=== PATIENT | male | born 1985 | race Caucasian/White ===

== ENCOUNTER 2021-07-14 22:21 | Emergency (ER) | payer OTHER, MEDICAID, SELFPAY ==
[2021-07-14 22:27] VITALS: BP 126/95; PULSE 104; RESP 18; TEMP 36.9; O2SAT 100; BMI 23.3
--- NOTE | 2021-07-15 01:38 | ED.DENTAL ---
HPI - Dental/Oral General Chief complaint: Dental/Oral Stated complaint: mouth pain and swelling Time Seen by Provider: 07/15/21 01:00 Source: patient Mode of arrival: Ambulatory History of Present Illness HPI Narrative: 36-year-old male vapes, with longstanding dental history presents with a chief complaint of pain and swelling of his right upper gum with some fluctuance. He had recently been seen and evaluated by his dentist and was given antibiotics and has since developed pain and swelling. He has had no facial swelling denies any fever or chills. Related Data Previous Rx's Medication Instructions Recorded amoxicillin 875 mg-potassium 1 tab PO BID #20 tab 07/15/21 clavulanate 125 mg tablet (Augmentin) Allergies Allergy/AdvReac Type Severity Reaction Status Date / Time No Known Drug Allergies Allergy Verified 07/14/21 22:31 Review of Systems Review of Systems Narrative: GENERAL: Denies chills, fatigue, malaise, fever, sweats. HEENT: See HPI RESPIRATORY: Denies dyspnea, cough, wheezing, hemoptysis, sputum. CARDIOVASCULAR: Denies chest pain, palpitations, orthopnea, edema, GASTROINTESTINAL: Denies nausea, vomiting, abdominal pain, diarrhea, constipation, melena. : Denies dysuria, frequency, incontinence, hematuria, urinary retention. MUSCULOSKELETAL: denies weakness, joint pain, or bony pain SKIN: Denies rash, skin lesions, or other NEUROLOGIC: Denies weakness, headache, numbness, change in speech, confusion, seizures, incoordination. PSYCHIATRIC: No concerning psychosocial issues. 12 point review of systems is negative except for those stated above Patient History tobacco type: vaping Substance Use Type: marijuana and methamphetamine Exam Narrative Exam Narrative: GEN: AOx3 and in mild distress EYES: Pupils are equal, round, and reactive to light and accommodation. Extraoccular muscles are intact bilaterally. There is no subconjunctival hemorrhage or exudate. ENT: poor dentition throughout, 2cm fluctuant mass above right upper premolars c/w abscess CHEST: Lungs are clear to auscultation bilaterally and free of wheezes, rales, or rhonchi. Heart rate is regular rhythm, there are no murmurs, clicks, rubs, or gallops. There is no chest wall tenderness. ABD: Abdomen is soft and nontender. There is no guarding or rebound. Bowel sounds are normal in all 4 quadrants. There is no mass or organomegaly. EXT: Full painless ROM of all extremities with no loss of sensation or strength. SKIN: Warm, pink, and dry. No erythema or rash Initial Vital Signs Initial Vital Signs: Vital Signs Temperature 98.5 F 07/14/21 22:27 Pulse Rate 104 H 07/14/21 22:27 Respiratory Rate 18 07/14/21 22:27 Blood Pressure 126/95 H 07/14/21 22:27 Pulse Oximetry 100 07/14/21 22:27 Procedures Abscess I/D I&D #1: Site: oral Side (if applicable): right Local Anesthetic: lidocaine 1% Amount of anesthesia used (mL): 3 Technique: needle aspiration Amount of fluid expressed (mL): 3 Irrigation: No Course Orders Ordered: Discontinued Medications Amoxicillin/Clavulanate Potassium (Amoxicillin/Clav 875/125 Mg) 1 tab PO NOW ONE Stop: 07/15/21 01:36 Last Admin: 07/15/21 02:05 Dose: 1 tab Documented by: DBROYLE Lidocaine HCl (Lidocaine Viscous 2% 15 Ml Solution) 15 ml PO NOW ONE Stop: 07/15/21 01:36 Vital Signs Vital signs: Vital Signs - 8 hr 07/14/21 22:27 07/15/21 02:09 Temperature 98.5 F Pulse Rate 104 H 89 Respiratory Rate 18 18 Blood Pressure 126/95 H 152/105 H Pulse Oximetry 100 96 Discharge Plan Departure Patient Disposition: Home Clinical Impression: Dental abscess Instructions: Tooth Abscess Activity Restrictions/Additional Instructions: *You have been diagnosed with [dental abscess] *What to do: *Please continue to take your regular medications as directed. [ x] New medication prescriptions sent to your pharmacy: [ [facility]] [ ] New medication written as a paper prescription [ ] No new medications given *Please follow up with your primary care provider in 2-3 days, call for an appointment. Let them know you were seen in the Emergency Department and that we ask that you be seen in follow up. We will electronically transmit a record of today's note if your PCP is in our system *If you do not have a primary care provider please contact the [facility] Resource line at [phone]. They will ask some questions about your medical history and help get you set up with a doctor in the community. *Return to Emergency Department if you should have any new, worsening or concerning symptoms, such as [fever greater than 101 F, shaking chills, worsening pain, persistent vomiting or other bothersome symptoms] Prescriptions: New amoxicillin-pot clavulanate [Augmentin] 875-125 mg tablet 1 tab PO BID Qty: 20 0RF
[2021-07-15] MEDS: AMOXICILLIN/CLAV 875/125 MG 1 TAB PO (02:05)
--- NOTE | 2021-07-15 02:07 | PC.NURSE ---
swelling noted to rt upper gum, appears to be an abscess.
[2021-07-15 02:09] VITALS: BP 152/105; PULSE 89; RESP 18; O2SAT 96
== END 2021-07-15 02:10 | disposition home or self-care (01) ==
PROVIDERS: Emergency Provider Emergency Medicine
DX: K04.7 Periapical abscess without sinus (principal); F17.290 Nicotine dependence, other tobacco product, uncomplicated
CPT/HCPCS: 10160; 99283

== ENCOUNTER 2021-08-28 16:10 | Emergency (ER) | payer OTHER, MEDICAID, SELFPAY ==
[2021-08-28 16:15] VITALS: BP 158/88; PULSE 115; RESP 24; TEMP 36.8; O2SAT 100
--- NOTE | 2021-08-28 16:20 | ED_ITS ---
HPI - Male Genitourinary <Mel Ibarra DO - Last Filed: 08/29/21 07:52> General Chief complaint: Urogenital-Male Stated complaint: RT. TESTICLE RT. LOWER ABD. PAIN Time Seen by Provider: 08/28/21 16:17 Source: patient Mode of arrival: Ambulatory Limitations: no limitations History of Present Illness HPI Narrative: 36-year-old male comes in with complaint of right testicular pain. Patient states he has had some difficulty with urination he states he had similar symptoms when he had chlamydia. He states he was treated with shot of antibiotics and oral antibiotics for 2 weeks. This was at [facility] about a year ago. Patient states he is sexually active but unaware of any exposures. He developed sensation of difficulty with urination yesterday but developed pain today. No fevers. No chest pain or shortness of breath, no nausea or vomiting. He has a little bit of right testicular pain and into the right suprapubic region. No flank or back pain. He has not had any discharge, he does appreciate dysuria, no frequency. Patient denies any warmth, erythema or other skin changes. He does not know any change in the positioning of the testicle. Patient states it came on gradually. He defers anything for pain be on ibuprofen. He denies any medical or past surgical history. He states he does use methamphetamines intermittently he has used recently. Denies any drug allergies. He does vape. He does drink alcohol occasionally. Related Data Previous Rx's Medication Instructions Recorded amoxicillin 875 mg-potassium 1 tab PO BID #20 tab 07/15/21 clavulanate 125 mg tablet (Augmentin) penicillin V potassium 500 mg 500 mg PO QID #40 tab 07/15/21 tablet Allergies Allergy/AdvReac Type Severity Reaction Status Date / Time No Known Drug Allergies Allergy Verified 07/14/21 22:31 Review of Systems <Mel Ibarra DO - Last Filed: 08/29/21 07:52> Review of Systems ROS Unobtainable: All systems reviewed & are unremarkable except as noted in HPI and below Patient History <Mel Ibarra DO - Last Filed: 08/29/21 07:52> Social History Smoking Status: Current every day smoker tobacco type: vaping Substance Use Type: marijuana and methamphetamine Exam <Mel Ibarra DO - Last Filed: 08/29/21 07:52> Narrative Exam Narrative: GENERAL: Alert and oriented x three, well-nourished male in mild distress. HEENT: Head normocephalic, atraumatic, EOMI, pupils reactive, face symmetric, moist mucous membranes NECK: Supple, full range of motion CARDIOVASCULAR: Regular rate and rhythm without murmurs, rubs or gallops. RESPIRATORY: Breath sounds equal bilaterally, no wheezes rales or rhonchi. ABDOMEN: Soft, nontender. Normoactive bowel sounds all 4 quadrants. No guarding or rebound, rigidity, no mass : No CVA tenderness. Male: normal external examination, no penile discharge or lesions, testicles very mild right tenderness no left tenderness, cremasteric reflex intact, no inguinal hernias noted. Right testicle is slightly elevated compared to left although patient states this is not atypical. 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 EXTREMITIES: Normal range of motion, no clubbing or edema. Neurovascularly intact NEUROLOGICAL: Cranial nerves II through XII grossly intact. Moving all extremities SKIN: Warm, dry, no petechiae, no rashes or lesions. Initial Vital Signs Initial Vital Signs: Vital Signs Temperature 98.3 F 08/28/21 16:15 Pulse Rate 115 H 08/28/21 16:15 Respiratory Rate 24 08/28/21 16:15 Blood Pressure 158/88 H 08/28/21 16:15 Pulse Oximetry 100 08/28/21 16:15 <Anthony Henderson DO - Last Filed: 08/28/21 22:59> Initial Vital Signs Initial Vital Signs: Vital Signs Temperature 98.3 F 08/28/21 16:15 Pulse Rate 115 H 08/28/21 16:15 Respiratory Rate 24 08/28/21 16:15 Blood Pressure 158/88 H 08/28/21 16:15 Pulse Oximetry 100 08/28/21 16:15 Course <Mel Ibarra DO - Last Filed: 08/29/21 07:52> Orders Ordered: Discontinued Medications Ibuprofen (Ibuprofen 400 Mg Tablet) 800 mg PO NOW ONE Stop: 08/28/21 16:31 Last Admin: 08/28/21 16:44 Dose: 800 mg Documented by: NRHOADS Vital Signs Vital signs: Vital Signs - 8 hr 08/28/21 16:15 08/28/21 17:51 08/28/21 17:52 Temperature 98.3 F Pulse Rate 115 H 85 Respiratory Rate 24 Blood Pressure 158/88 H 134/79 Pulse Oximetry 100 99 08/28/21 19:17 Temperature Pulse Rate 72 Respiratory Rate 16 Blood Pressure Pulse Oximetry 99 <Anthony Henderson DO - Last Filed: 08/28/21 22:59> Orders Ordered: Discontinued Medications Ibuprofen (Ibuprofen 400 Mg Tablet) 800 mg PO NOW ONE Stop: 08/28/21 16:31 Last Admin: 08/28/21 16:44 Dose: 800 mg Documented by: NRHOADS Vital Signs Vital signs: Vital Signs - 8 hr 08/28/21 16:15 08/28/21 17:51 08/28/21 17:52 Temperature 98.3 F Pulse Rate 115 H 85 Respiratory Rate 24 Blood Pressure 158/88 H 134/79 Pulse Oximetry 100 99 08/28/21 19:17 Temperature Pulse Rate 72 Respiratory Rate 16 Blood Pressure Pulse Oximetry 99 MDM - Male Genitourinary <Mel Ibarra, DO - Last Filed: 08/29/21 07:52> Lab Data Labs: Lab Results 08/28/21 08/28/21 Range/Units 17:17 17:17 Urine Color Yellow Urine Appearance Clear Urine pH 6.5 (4.5-8.0) Ur Specific F[place]ardo 1.015 (1.000-1.035) Urine Protein Negative (Negative) Urine Glucose (UA) Negative (Negative) g/dL Urine Ketones Negative (NEGATIVE) Urine Occult Blood Negative (Negative) Urine Nitrate Negative (Negative) Urine Bilirubin Negative (NEGATIVE) Urine Urobilinogen 0.2 (0.2) E.U./dL Ur Leukocyte Esterase Negative (NEGATIVE) Urine RBC None seen (0-5/HPF) Urine WBC None seen (0-5/HPF) Urine Bacteria None seen (None) Ur Culture Indicated? Cult not indicated Ur Chlamydia DNA (PCR) Not detected N gonorrhoeae DNA (PCR) Not detected Imaging Data scrotal US: Radiologist's Impression: [address] [address] Ultrasound Report Signed Patient: Esdras Rainey MR#: [id number] : 1985 Acct:[id number] Age/Sex: 36 / M Date of Service: 08/28/21 Loc: ED Accession Number: [id number] ?? Procedure: US scrotum Ordering Provider: Mel Ibarra D.O. PROCEDURE:? US SCROTUM ? INDICATIONS:? RIGHT TESTICULAR PAIN X 5 HOURS ? TECHNIQUE:? Real-time scanning was performed of the scrotum and testicles, with image documentation.? Color and pulse Doppler interrogation was performed of both testicles.? ? COMPARISON:? [facility], US, US TESTICULAR+DOPPLER, 02/19/2017, 12:26. ? FINDINGS:? ? Right:? Testicle is normal in size at 3.7 x 2.1 x 3.1 cm, and homogenous in echotexture.? Epididymis is normal in overall size and morphology.? No hydrocele or varicoceles.? Overlying scrotal skin is normal in thickness.? ? Left:? Testicle is normal in size at 4 x 2 x 2.7 cm, and homogeneous in echotexture.? Epididymis is normal in overall size and morphology.? No hydrocele or varicoceles.? Overlying scrotal skin is normal in thickness.? ? Doppler:? Color and pulse Doppler demonstrate normal and symmetric arterial flow in both testicles.? ? IMPRESSION:? Normal study. ? Negative for testicular torsion or mass. ? ? Dictated by: Ry Mitchell M.D. on 08/28/2021 at 16:10 ? ? Approved by: Ry Mitchell M.D. on 08/28/2021 at 16:12? MDM Narrative Medical decision making narrative: Patient feeling better after ibuprofen. He had scrotum US which is negative. Urine sample is still pending and was sent for urine GC and UA. Exam and HPI are unlikely for torsion with negative US. Patient signed out to Dr. Henderson. 1800 - (MEENAKSHI) Patient received in sign-out from Dr. Ibarra. I reviewed the clinical course up to this point have performed an independent history and physical exam. Ultrasound is unremarkable and shows no signs of torsion, epididymitis varicocele, etc.. Urine GC is negative. Patient is asymptomatic at this point time. Return precautions given and questions answered to his apparent satisfaction. <Anthony Henderson, DO - Last Filed: 08/28/21 22:59> Lab Data Labs: Lab Results 08/28/21 08/28/21 Range/Units 17:17 17:17 Urine Color Yellow Urine Appearance Clear Urine pH 6.5 (4.5-8.0) Ur Specific F[place]ardo 1.015 (1.000-1.035) Urine Protein Negative (Negative) Urine Glucose (UA) Negative (Negative) g/dL Urine Ketones Negative (NEGATIVE) Urine Occult Blood Negative (Negative) Urine Nitrate Negative (Negative) Urine Bilirubin Negative (NEGATIVE) Urine Urobilinogen 0.2 (0.2) E.U./dL Ur Leukocyte Esterase Negative (NEGATIVE) Urine RBC None seen (0-5/HPF) Urine WBC None seen (0-5/HPF) Urine Bacteria None seen (None) Ur Culture Indicated? Cult not indicated Ur Chlamydia DNA (PCR) Not detected N gonorrhoeae DNA (PCR) Not detected MDM Narrative Medical decision making narrative: 1800 - (CURRAN) Patient received in sign-out from Dr. Ibarra. I reviewed the clinical course up to this point have performed an independent history and physical exam. Ultrasound is unremarkable and shows no signs of torsion, epididymitis varicocele, etc.. Urine GC is negative. Patient is asymptomatic at this point time. Return precautions given and questions answered to his apparent satisfaction. Discharge Plan Departure Patient Disposition: Home Clinical Impression: Pain in right testicle Instructions: How to Perform a Testicular Self-exam Activity Restrictions/Additional Instructions: *You have been diagnosed with [right testicular pain. As we discussed her history and physical exam are reassuring. Urine test were unremarkable an ultrasound shows no sign of testicular torsion, epididymitis, varicocele or other concerning finding *What to do: *Please continue to take your regular medications as directed. [ ] New medication prescriptions sent to your pharmacy: [ ] [ ] New medication written as a paper prescription [ x] No new medications given *Please follow up with your primary care provider in 2-3 days, call for an appointment. Let them know you were seen in the Emergency Department and that we ask that you be seen in follow up. We will electronically transmit a record of today's note if your PCP is in our system *If you do not have a primary care provider please contact the [facility] Resource line at [phone]. They will ask some questions about your medical history and help get you set up with a doctor in the community. *Return to Emergency Department if you should have any new, worsening or concerning symptoms, such as [fever greater than 101 F, shaking chills, worsening pain, persistent vomiting or other bothersome symptoms] Prescriptions: No Action amoxicillin-pot clavulanate [Augmentin] 875-125 mg tablet 1 tab PO BID Qty: 20 0RF penicillin V potassium 500 mg tablet 500 mg PO QID Qty: 40 0RF
--- NOTE | 2021-08-28 16:30 | DI.US.S_ITS ---
PROCEDURE: US SCROTUM INDICATIONS: RIGHT TESTICULAR PAIN X 5 HOURS TECHNIQUE: Real-time scanning was performed of the scrotum and testicles, with image documentation. Color and pulse Doppler interrogation was performed of both testicles. COMPARISON: [facility], US, US TESTICULAR+DOPPLER, 02/19/2017, 12:26. FINDINGS: Right: Testicle is normal in size at 3.7 x 2.1 x 3.1 cm, and homogenous in echotexture. Epididymis is normal in overall size and morphology. No hydrocele or varicoceles. Overlying scrotal skin is normal in thickness. Left: Testicle is normal in size at 4 x 2 x 2.7 cm, and homogeneous in echotexture. Epididymis is normal in overall size and morphology. No hydrocele or varicoceles. Overlying scrotal skin is normal in thickness. Doppler: Color and pulse Doppler demonstrate normal and symmetric arterial flow in both testicles. IMPRESSION: Normal study. Negative for testicular torsion or mass. Dictated by: Ry Mitchell M.D. on 08/28/2021 at 16:10 Approved by: Ry Mitchell M.D. on 08/28/2021 at 16:12
[2021-08-28] MEDS: IBUPROFEN 400 MG TABLET 800 MG PO (16:44)
[2021-08-28 17:51] VITALS: PULSE 85; O2SAT 99
[2021-08-28 17:52] VITALS: BP 134/79
[2021-08-28 18:16] LABS: Appearance Urine UA Clear; Color Urine UA Yellow; Protein Urine UA Negative (Negative); Specific Gravity Urine UA 1.015 (1.000-1.035); pH Urine UA 6.5 (4.5-8.0)
[2021-08-28 18:17] LABS: Bilirubin Urine UA Negative (NEGATIVE); Glucose Urine UA NEGATIVE (Negative); Ketones Urine UA NEGATIVE (NEGATIVE); Leukocyte Esterase Urine UA NEGATIVE (NEGATIVE); Nitrite Urine UA NEGATIVE (Negative); Occult Blood Urine UA Negative (Negative); Urobilinogen Urine UA 0.2 E.U./dL (0.2)
[2021-08-28 18:20] LABS: RBC Urine None Seen (0-5/HPF); WBC Urine None Seen (0-5/HPF)
[2021-08-28 18:21] LABS: Bacteria Urine None Seen; Culture Indicated Urine Cult Not Indicated
[2021-08-28 18:50] LABS: Urine N gonorrhoeae NOT DETECTED
[2021-08-28 19:02] LABS: Urine Chlamydia NOT DETECTED
[2021-08-28 19:17] VITALS: PULSE 72; RESP 16; O2SAT 99
== END 2021-08-28 19:19 | disposition home or self-care (01) ==
PROVIDERS: Emergency Medicine; Emergency Provider Emergency Medicine
DX: N50.811 Right testicular pain (principal)
CPT/HCPCS: 76870; 81001; 87491; 87591; 99283

== ENCOUNTER 2021-11-01 12:35 | Emergency (ER) | payer OTHER, MEDICAID, SELFPAY ==
[2021-11-01 13:04] VITALS: BP 132/84; PULSE 144; RESP 20; TEMP 37.4; O2SAT 100; BMI 24.6
--- NOTE | 2021-11-01 13:12 | DI.RAD.S_ITS ---
PROCEDURE: XR CHEST 1V INDICATIONS: suspected sepsis TECHNIQUE: One view of the chest was acquired. COMPARISON: None. FINDINGS: Surgical changes and devices: None. Lungs and pleura: Patchy bibasilar densities may represent bibasilar pneumonia. No pleural effusions or pneumothorax. Mediastinum: Mediastinal contours appear normal. Heart size is normal. Bones and chest wall: No suspicious bony lesions. Overlying soft tissues appear unremarkable. IMPRESSION: Patchy bibasilar densities may represent bibasilar pneumonia. Comment: Progress films are recommended until clear. Dictated by: Rohan Mills M.D. on 11/01/2021 at 13:42 Approved by: Rohan Mills M.D. on 11/01/2021 at 13:43
[2021-11-01 13:30] LABS: Add Manual Diff / Slide Review NO; Basophils Absolute Auto 100 /uL (0-100); Basophils Percent Auto 0.2 % (0-2); Eosinophils Absolute Auto 0 /uL (0-450); Hematocrit 44.3 % (41-53); Hemoglobin 15.1 g/dL (13.5-17.5); Lymphocytes Absolute Auto 600 /uL (1100-4500); Lymphocytes Percent Auto 2.4 % (25-40); Mean Corpuscular Hemoglobin 28.6 PG (26-34); Mean Corpuscular Volume 84.1 fL (80-100); Monocytes Absolute Auto 2100 /uL (0-900); Monocytes Percent Auto 7.9 % (3-14); Neutrophils Absolute Auto 23900 /uL (1500-7000); Neutrophils Percent Auto 89.5 % (50-75); Platelet Count 296 X10^3/uL (150-400); Red Blood Cell Count 5.26 X10^6/uL (4.5-5.9); Red Cell Distribution Width 14.9 % (11.6-14.8); White Blood Cell Count 26.7 X10^3/uL (4.5-11.0)
[2021-11-01] MEDS: SODIUM CHLORIDE 0.9% 1,000 ML 1000 ML IV ×2 (13:31→14:24)
[2021-11-01 13:42] LABS: COVID19 -Nasal RAPID Negative (Negative)
[2021-11-01 13:43] LABS: Alanine Aminotransferase 29 IU/L (<50); Albumin 4.4 g/dL (3.5-5.0); Albumin Globulin Ratio 1.3 (1.0-2.8); Alkaline Phosphatase 105 U/L (38-126); Aspartate Aminotransferase 34 IU/L (17-59); Bilirubin Total 0.9 mg/dL (0.2-1.3); Blood Urea Nitrogen 16 mg/dL (9-20); Calcium 9.5 mg/dL (8.4-10.2); Carbon Dioxide 28 mmol/L (22-32); Chloride 94 mmol/L (98-107); Estimated Glomerular Filt Rate > 60 mL/min (>60); Globulin 3.4 g/dL (1.7-4.1); Glucose 161 mg/dL (70-100); HEMOLYSIS < 15 (0-50); Lipase 19 U/L (23-300); Potassium 4.3 mmol/L (3.4-5.1); Sodium 132 mmol/L (137-145); Total Protein 7.8 g/dL (6.3-8.2)
[2021-11-01 13:44] LABS: Lactate (Lactic Acid) 1.5 mmol/L (0.7-2.1)
[2021-11-01 14:00] LABS: Procalcitonin 1.31 ng/mL (<0.5)
[2021-11-01] MEDS: cefTRIAXone 2,000 MG in SODIUM CHLORIDE 0.9% 100 ML 200 ML IV (14:39)
--- NOTE | 2021-11-01 14:41 | ED.SEPSIS ---
HPI - Sepsis General Chief Complaint: Upper Respiratory Symptoms Mode of arrival: Ambulatory Source: patient Limitations: no limitations Evaluation Sepsis Screen: Possible Sepsis Risk Sepsis Infection Criteria Present: Suspected New Infection Narrative: Patient is a healthy 36-year-old male who does have history of methamphetamine abuse presenting today with sweating fever cough rigors. She said last 2 days he has not felt well. 2 days ago he was extremely tired slept most the day yesterday he developed chills and sweats. Today he overall does not feel well. Initially tachycardic heart rate 140s he was quite diaphoretic. He is feeling a bit better now with fluids and time. He said he had a fever at home only reported at 99. He denies any IV drug abuse. He denies any chest pain he occasionally has shortness of breath. Review of Systems Review of Systems Narrative: GENERAL: See HPI HEENT: Denies sinus pain, ear pain, sore throat, difficulty swallowing, neck pain RESPIRATORY: See HPI CARDIOVASCULAR: Denies chest pain, palpitations, orthopnea, edema GASTROINTESTINAL: Denies nausea, vomiting, abdominal pain, diarrhea, constipation, melena. : Denies dysuria, frequency, incontinence, hematuria, urinary retention, flank pain. MUSCULOSKELETAL: Denies weakness, joint pain, or bony pain SKIN: No rash, no erythema, no pruritus NEUROLOGIC: Denies weakness, dizziness, headache, numbness, change in speech, confusion PSYCHIATRIC: No concerning psychosocial issues. 12 point review of systems is negative except for those stated above and HPI Patient History Social History Smoking Status: Current every day smoker Smoking Status: Current every day smoker tobacco type: vaping alcohol intake frequency: 0-2 drinks per day Alcohol type: other Substance Use Type: marijuana and methamphetamine Exam Initial Vital Signs Initial Vital Signs: Vital Signs Temperature 99.4 F 11/01/21 13:04 Pulse Rate 144 H 11/01/21 13:04 Respiratory Rate 20 11/01/21 13:04 Blood Pressure 132/84 11/01/21 13:04 Pulse Oximetry 100 11/01/21 13:04 GENERAL: Diaphoretic 36-year-old male appears in [id number] distress HEENT: Head atraumatic,EOMI, pupils reactive, face symmetric, moist mucous membranes CARDIOVASCULAR: Tachycardic no murmur RESPIRATORY: Breath sounds equal bilaterally, no wheezes rales or rhonchi. No respiratory distress ABDOMEN: Soft, nontender. Normoactive bowel sounds all 4 quadrants. No guarding or rebound. EXTREMITIES: Normal range of motion, no clubbing or edema. Neurovascularly intact NEUROLOGICAL: Alert and oriented x4.Normal gait and speech. SKIN: Warm, dry, no laceration, no petechiae, no rashes or lesions. Course Orders Ordered: ED Orders 11/01/21 11:37 Respiratory Panel (Film Array) Stat 11/01/21 13:01 COVID19 -Nasal RAPID/Pre-Proc Stat 11/01/21 13:05 Complete Blood Count AUTO DIFF Stat Comprehensive Metabolic Panel Stat Lactate (Lactic Acid) Stat Lipase Stat Procalcitonin Stat 11/01/21 13:12 XR chest 1V Stat EKG-12 Lead Stat RT Consult Eval and Treat NOW 11/01/21 13:57 Blood Culture Stat 11/01/21 15:05 Urine Drug Screen, Rapid Stat Discontinued Medications Sodium Chloride (Normal Saline 0.9%) 1,000 mls @ 1,000 mls/hr IV BOLUS ONE Stop: 11/01/21 14:10 Last Infusion: 11/01/21 14:24 Dose: 0 mls/hr Documented by: Admin: 11/01/21 13:31 Dose: 1,000 mls/hr Documented by: EDWIN Sodium Chloride (Normal Saline 0.9%) 1,000 mls @ 1,000 mls/hr IV BOLUS ONE Stop: 11/01/21 14:45 Last Infusion: 11/01/21 15:29 Dose: 0 mls/hr Documented by: Admin: 11/01/21 14:24 Dose: 1,000 mls/hr Documented by: EDWIN Ceftriaxone Sodium 2,000 mg/ (Sodium Chloride) 100 mls @ 200 mls/hr IV NOW ONE Stop: 11/01/21 14:34 Last Infusion: 11/01/21 14:56 Dose: 0 mls/hr Documented by: Admin: 11/01/21 14:39 Dose: 200 mls/hr Documented by: EDWIN Azithromycin 500 mg/ Dextrose 250 mls @ 250 mls/hr IV NOW ONE Stop: 11/01/21 14:34 Last Infusion: 11/01/21 16:20 Dose: 0 mls/hr Documented by: Admin: 11/01/21 14:57 Dose: 250 mls/hr Documented by: EDWIN Vital Signs Vital signs: Vital Signs - 8 hr 11/01/21 13:04 11/01/21 17:24 Temperature 99.4 F 98.7 F Pulse Rate 144 H 97 H Respiratory Rate 20 20 Blood Pressure 132/84 110/73 Pulse Oximetry 100 98 Sepsis Guideline Criteria Level 1 - Infection Sepsis Infection Criteria Present: Suspected New Infection Treatment Initiated Antibiotics:: IV antimicrobials will be initiated as soon as possible after recognition of sepsis state and within one hour for both sepsis and septic shock. MDM - Sepsis Lab Data Result diagrams: 11/01/21 13:05 11/01/21 13:05 Labs: Lab Results 11/01/21 11/01/21 11/01/21 Range/Units 11:37 13:01 13:05 WBC 26.7 H (4.5-11.0) X10^3/uL RBC 5.26 (4.5-5.9) X10^6/uL Hgb 15.1 (13.5-17.5) g/dL Hct 44.3 (41-53) % MCV 84.1 (80-100) fL MCH 28.6 (26-34) PG MCHC 34.0 (30-36) % RDW 14.9 H (11.6-14.8) % Plt Count 296 (150-400) X10^3/uL Neut % (Auto) 89.5 H (50-75) % Lymph % (Auto) 2.4 L (25-40) % [place] % (Auto) 7.9 (3-14) % Eos % (Auto) 0.0 L (2-4) % Baso % (Auto) 0.2 (0-2) % Neut # (Auto) 92348 H (1478-0174) /uL Lymph # (Auto) 600 L (6209-2489) /uL [place] # (Auto) 2100 H (0-900) /uL Eos # (Auto) 0 (0-450) /uL Baso # (Auto) 100 (0-100) /uL Sodium (137-145) mmol/L Potassium (3.4-5.1) mmol/L Chloride (98-107) mmol/L Carbon Dioxide (22-32) mmol/L BUN (9-20) mg/dL Creatinine (0.66-1.25) mg/dL Estimated GFR (>60) mL/min BUN/Creatinine Ratio (6-22) Glucose (70-100) mg/dL Lactate (0.7-2.1) mmol/L Calcium (8.4-10.2) mg/dL Total Bilirubin (0.2-1.3) mg/dL AST (17-59) IU/L ALT (<50) IU/L Alkaline Phosphatase (38-126) U/L Total Protein (6.3-8.2) g/dL Albumin (3.5-5.0) g/dL Globulin (1.7-4.1) g/dL Albumin/Globulin Ratio (1.0-2.8) Lipase (23-300) U/L Procalcitonin (<0.5) ng/mL U Opiates 300ng/mL cut (Negative) Ur Oxycodone Screen (Negative) Urine Methadone Screen (Negative) Ur Barbiturates Screen (Negative) U Tricyclic Antidepress (Negative) Ur Phencyclidine Scrn (Negative) Ur Amphetamines Screen (Negative) U Methamphetamines Scrn (Negative) Ur MDMA Scrn (Ecstasy) (Negative) U Benzodiazepines Scrn (Negative) Urine Cocaine Screen (Negative) U Marijuana (THC) Screen (Negative) Chlamy pneumoniae PCR Not detected (Not Detect) Adenovirus (PCR) Not detected (Not Detect) B. pertussis DNA (PCR) Not detected (Not Detecte) B.parapertussis DNA PCR Not detected (Not Detecte) Coronavirus OC43 (PCR) Not detected (Not Detect) Coronavirus HKU1 (PCR) Not detected (Not Detect) Coronavirus 229E (PCR) Not detected (Not Detect) SARS-CoV-2 (PCR) Not detected Negative (Not Detecte) Coronavirus NL63 (PCR) Not detected (Not Detect) Human Metapneumovir PCR Not detected (Not Detect) Influenza Type A (PCR) Not detected (Not Detect) Influenza Type B (PCR) Not detected (Not Detect) M. pneumoniae (PCR) Not detected (Not Detect) Parainfluenza 1 (PCR) Not detected (Not Detect) Parainfluenza 2 (PCR) Not detected (Not Detect) Parainfluenza 3 (PCR) Not detected (Not Detect) Parainfluenza 4 (PCR) Not detected (Not Detect) RSV (PCR) Not detected (Not Detect) Entero/Rhino (PCR) Detected H (Not Detect) 11/01/21 11/01/21 11/01/21 Range/Units 13:05 13:05 15:05 WBC (4.5-11.0) X10^3/uL RBC (4.5-5.9) X10^6/uL Hgb (13.5-17.5) g/dL Hct (41-53) % MCV (80-100) fL MCH (26-34) PG MCHC (30-36) % RDW (11.6-14.8) % Plt Count (150-400) X10^3/uL Neut % (Auto) (50-75) % Lymph % (Auto) (25-40) % [place] % (Auto) (3-14) % Eos % (Auto) (2-4) % Baso % (Auto) (0-2) % Neut # (Auto) (0107-8515) /uL Lymph # (Auto) (6694-3923) /uL [place] # (Auto) (0-900) /uL Eos # (Auto) (0-450) /uL Baso # (Auto) (0-100) /uL Sodium 132 L (137-145) mmol/L Potassium 4.3 (3.4-5.1) mmol/L Chloride 94 L (98-107) mmol/L Carbon Dioxide 28 (22-32) mmol/L BUN 16 (9-20) mg/dL Creatinine 1.00 (0.66-1.25) mg/dL Estimated GFR > 60 (>60) mL/min BUN/Creatinine Ratio 16.0 (6-22) Glucose 161 H (70-100) mg/dL Lactate 1.5 (0.7-2.1) mmol/L Calcium 9.5 (8.4-10.2) mg/dL Total Bilirubin 0.9 (0.2-1.3) mg/dL AST 34 (17-59) IU/L ALT 29 (<50) IU/L Alkaline Phosphatase 105 (38-126) U/L Total Protein 7.8 (6.3-8.2) g/dL Albumin 4.4 (3.5-5.0) g/dL Globulin 3.4 (1.7-4.1) g/dL Albumin/Globulin Ratio 1.3 (1.0-2.8) Lipase 19 L (23-300) U/L Procalcitonin 1.31 H (<0.5) ng/mL U Opiates 300ng/mL cut Negative (Negative) Ur Oxycodone Screen Negative (Negative) Urine Methadone Screen Negative (Negative) Ur Barbiturates Screen Negative (Negative) U Tricyclic Antidepress Negative (Negative) Ur Phencyclidine Scrn Negative (Negative) Ur Amphetamines Screen Positive H (Negative) U Methamphetamines Scrn Positive H (Negative) Ur MDMA Scrn (Ecstasy) Negative (Negative) U Benzodiazepines Scrn Negative (Negative) Urine Cocaine Screen Negative (Negative) U Marijuana (THC) Screen Positive H (Negative) Chlamy pneumoniae PCR (Not Detect) Adenovirus (PCR) (Not Detect) B. pertussis DNA (PCR) (Not Detecte) B.parapertussis DNA PCR (Not Detecte) Coronavirus OC43 (PCR) (Not Detect) Coronavirus HKU1 (PCR) (Not Detect) Coronavirus 229E (PCR) (Not Detect) SARS-CoV-2 (PCR) (Not Detecte) Coronavirus NL63 (PCR) (Not Detect) Human Metapneumovir PCR (Not Detect) Influenza Type A (PCR) (Not Detect) Influenza Type B (PCR) (Not Detect) M. pneumoniae (PCR) (Not Detect) Parainfluenza 1 (PCR) (Not Detect) Parainfluenza 2 (PCR) (Not Detect) Parainfluenza 3 (PCR) (Not Detect) Parainfluenza 4 (PCR) (Not Detect) RSV (PCR) (Not Detect) Entero/Rhino (PCR) (Not Detect) Urine Dip Bedside Urine Glucose Negative Bedside Urine Bilirubin - Negative Bedside Urine Ketone - Negative Urine Specific [place] 1.015 Bedside Urine Occult Blood - Negative Bedside Urine pH 6.0 Bedside Urine Protein - Negative Bedside Urine Urobilinogen 0.2 Bedside Urine Nitrite - Negative Bedside Urine Leukocytes - Negative Esterase Imaging Data Chest x-ray: Radiologist's Impression: Patient: Esdras Rainey MR#: [id number] : 1985 Acct:[id number] Age/Sex: 36 / M Date of Service: 11/01/21 Loc: ED Accession Number: [id number] ?? Procedure: XR chest 1V Ordering Provider: Nereida Louise D.O. PROCEDURE:? XR CHEST 1V ? INDICATIONS:? suspected sepsis ? TECHNIQUE:? One view of the chest was acquired.? ? COMPARISON:? None. ? FINDINGS:? ? Surgical changes and devices:? None.? ? Lungs and pleura:? Patchy bibasilar densities may represent bibasilar pneumonia.? No pleural effusions or pneumothorax.? ? Mediastinum:? Mediastinal contours appear normal.? Heart size is normal.? ? Bones and chest wall:? No suspicious bony lesions.? Overlying soft tissues appear unremarkable.? ? IMPRESSION:? Patchy bibasilar densities may represent bibasilar pneumonia. ? Comment: Progress films are recommended until clear. ? ? Dictated by: Rohan Mills M.D. on 11/01/2021 at 13:42 ? ? ECG Data Interpretation: Sinus tachycardia rate 113 p.r. 188 QRS 92 QTC 408 Q-waves noted in [address] elevation no T-wave inversion, no priors MDM Narrative Medical decision making narrative: The patient is having infectious symptoms with rigors diaphoresis. He is afebrile here but probably has been having fevers at home. He is found have leukocytosis of 26,000. He has an elevated procalcitonin and normal lactic acid. He is noted to be tachycardic but normal tense. X-ray confirms pneumonia he actually has had some pneumonia symptoms is and his respiratory panel is also positive for rhino virus. Patient not hypoxic he has improved significantly his with IV fluids. He has risk factors of methamphetamine use but no other factors. At this time he has been given Rocephin and azithromycin to cover for community-acquired pneumonia in a prescription for cefdinir. The patient is feeling significantly better discussed return precautions with him. I discussed all findings with the patient [and /spouse mother], Education has been performed regarding treatment plan, diagnosis, warning signs and symptoms and all concerns have been addressed. Verbally agree with and understood all of the above. Discharge Plan Departure Patient Disposition: Home Clinical Impression: Pneumonia, Rhinovirus Instructions: DI for Pneumonia -- Adult Activity Restrictions/Additional Instructions: *You have been diagnosed with pneumonia *What to do: At this time have pneumonia and RSV. Please increase fluid with Gatorade or Pedialyte like substance water use etc.. He will continue to feel poorly but hopefully after 2-3 days of antibiotics he will start feeling better. *Continue to take medications as directed--> SENT TO [facility] Tylenol 1000 mg every 6 hours if needed for pain or fever Ibuprofen 600 mg every 6 hours if needed for pain or fever Cefdinir 300 mg twice a day for 7 days *Follow up with your primary care provider in 2-3 days or call [phone] *Return to ER if you should have increasing shortness of breath inability to tolerate fluids, increasing weakness confusion or any new, worsening or concerning symptoms Prescriptions: New cefdinir 300 mg capsule 300 mg PO BID Qty: 14 0RF No Action amoxicillin-pot clavulanate [Augmentin] 875-125 mg tablet 1 tab PO BID Qty: 20 0RF penicillin V potassium 500 mg tablet 500 mg PO QID Qty: 40 0RF
[2021-11-01] MEDS: AZITHROMYCIN 500 MG in DEXTROSE 5% IN WATER 250 ML IV (14:57)
[2021-11-01 14:59] LABS: Adenovirus Not Detected (Not Detect); B. parapertussis Not Detected (Not Detecte); Bordetella pertussis Not Detected (Not Detecte); Chlamydophila pneumoniae Not Detected (Not Detect); Coronavirus 229E Not Detected (Not Detect); Coronavirus HKU1 Not Detected (Not Detect); Coronavirus NL 63 Not Detected (Not Detect); Coronavirus OC43 Not Detected (Not Detect); Human Metapneumovirus Not Detected (Not Detect); Human Rhinovirus/Enterovirus Detected (Not Detect); Influenza A Not Detected (Not Detect); Influenza B Not Detected (Not Detect); Mycoplasma pneumoniae Not Detected (Not Detect); Parainfluenza Virus 1 Not Detected (Not Detect); Parainfluenza Virus 2 Not Detected (Not Detect); Parainfluenza Virus 3 Not Detected (Not Detect); Parainfluenza Virus 4 Not Detected (Not Detect); Respiratory Syncytial Virus Not Detected (Not Detect); SARS- CoV-2 Not Detected (Not Detecte)
[2021-11-01 15:48] LABS: Ur Creatinine Normal (Normal); Ur Specific Gravity Normal (Normal); Urine pH Normal (Normal)
[2021-11-01 15:49] LABS: UR Morphine/Opiate cutoff 300 Negative (Negative); Urine Amphetamines Positive (Negative); Urine Barbiturates Negative (Negative); Urine Benzodiazepines Negative (Negative); Urine Cocaine Negative (Negative); Urine MDMA Negative (Negative); Urine Methadone Negative (Negative); Urine Methamphetamines Positive (Negative); Urine Oxycodone Negative (Negative); Urine Phencyclidine Negative (Negative); Urine Tetrahydrocannabinol Positive (Negative); Urine Tricyclic Antidepressant Negative (Negative)
[2021-11-01 17:24] VITALS: BP 110/73; PULSE 97; RESP 20; TEMP 37.1; O2SAT 98
[2021-11-02 06:36] LABS: Enterococcus species Not Detected (Not Detect); Listeria monocytogenes Not Detected (Not Detect); Staphylococcus species Not Detected (Not Detect)
[2021-11-02 06:37] LABS: Acinetobacter baumannii Not Detected (Not Detect); Candida albicans Not Detected (Not Detect); Candida glabrata Not Detected (Not Detect); Candida krusei Not Detected (Not Detect); Candida parapsilosis Not Detected (Not Detect); Candida tropicalis Not Detected (Not Detect); E. coli Not Detected (Not Detect); Enterobacter cloacae complex Not Detected (Not Detect); Enterobacteriaceae species Not Detected (Not Detect); Haemophilus influenzae Not Detected (Not Detect); Neisseria meningitidis Not Detected (Not Detect); Proteus species Not Detected (Not Detect); Pseudomonas aeruginosa Not Detected (Not Detect); Serratia marcescens Not Detected (Not Detect); Streptococcus agalactiae (Gr B Not Detected (Not Detect); Streptococcus pneumonia Detected (Not Detect); Streptococcus pyogenes (Gr A) Not Detected (Not Detect); Streptococcus species Detected (Not Detect)
--- NOTE | 2021-11-04 19:04 | PC.NURSE ---
pt called in to see if he needed to come back in because he doesn't have a pcp to follow up with, I explained to come in if the warning signs on the D/C paper.
== END 2021-11-01 17:41 | disposition home or self-care (01) ==
PROVIDERS: Emergency Provider Emergency Medicine
DX: J18.9 Pneumonia, unspecified organism (principal); B97.89 Other viral agents as the cause of diseases classified elsewhere; Z20.822 Contact with and (suspected) exposure to COVID-19; F17.290 Nicotine dependence, other tobacco product, uncomplicated
CPT/HCPCS: 36415; 71045; 80053; 80305; 81003; 83605; 83690; 84145; 85025; 87040; 87150; 87186; 87205; 87633; 87635; 93005; 93010; 96361; 96365; 96367; 99284; C9803; J0696

== ENCOUNTER 2021-11-04 21:48 | Emergency (ER) | payer OTHER, MEDICAID, SELFPAY ==
[2021-11-04 21:55] VITALS: BP 143/91; PULSE 110; RESP 17; TEMP 37; O2SAT 96
--- NOTE | 2021-11-04 22:04 | ED.GENADULT ---
HPI - General Adult General Chief complaint: Recheck/Abnormal Lab/Rx Stated complaint: states called back for pneumonia Time Seen by Provider: 11/04/21 21:51 Source: patient Mode of arrival: Ambulatory Limitations: no limitations History of Present Illness HPI narrative: Patient is a 36-year-old male. Was seen here in the emergency department several days ago. Was started on cefdinir after being diagnosed with a pneumonia. His blood cultures today resulted as positive for strep pneumo. Patient was contacted and returned to the emergency department. Here patient states that he feels much better. No fevers. Is tolerating the antibiotics. Is taking in as directed. Is still having a productive cough. Does state that overall he feels much better than earlier in the week. Related Data Previous Rx's Medication Instructions Recorded amoxicillin 875 mg-potassium 1 tab PO BID #20 tab 07/15/21 clavulanate 125 mg tablet (Augmentin) penicillin V potassium 500 mg 500 mg PO QID #40 tab 07/15/21 tablet cefdinir 300 mg capsule 300 mg PO BID #14 cap 11/01/21 Allergies Allergy/AdvReac Type Severity Reaction Status Date / Time No Known Drug Allergies Allergy Verified 07/14/21 22:31 Review of Systems Constitutional Comments: No fevers Respiratory Respiratory: Reports as per HPI and Reports system reviewed and no additional complaints, except as documented Gastrointestinal Comments: Tolerating antibiotics Genitourinary Comments: No GI symptoms Hematologic/Lymphatic On Anticoagulants: No Patient History Medical History (Updated 11/04/21 @ 22:20 by Esdras Huddleston DO) Methamphetamine abuse Pneumonia Social History Smoking Status: Current every day smoker Smoking Status: Current every day smoker tobacco type: vaping alcohol intake frequency: 0-2 drinks per day Alcohol type: other Substance Use Type: marijuana and methamphetamine Exam Initial Vital Signs Initial Vital Signs: Vital Signs Temperature 98.6 F 11/04/21 21:55 Pulse Rate 110 H 11/04/21 21:55 Respiratory Rate 17 11/04/21 21:55 Blood Pressure 143/91 H 11/04/21 21:55 Pulse Oximetry 96 11/04/21 21:55 Const General: healthy appearing and No ill appearing Resp Effort & Inspection: normal respiratory effort Auscultation: clear to auscultation bilaterally Cardio Rate: tachycardic Rhythm: regular rhythm Neuro General: patient alert, patient awake and moves all extremities Extrem General: normal to inspection and capillary refill normal Psych Appearance: grossly normal and well kempt Scores GCS Sherry coma scale eye opening: Spontaneous Sherry coma scale verbal response: Orientated Sherry coma scale motor response: Obey commands [place] coma scale total score: 15 Course Orders Ordered: ED Orders 11/04/21 21:54 Complete Blood Count AUTO DIFF Stat Comprehensive Metabolic Panel Stat 11/04/21 21:55 XR chest 1V Stat Blood Culture Stat Lactate (Lactic Acid) Stat Lipase Stat Procalcitonin Stat Vital Signs Vital signs: Vital Signs - 8 hr 11/04/21 21:55 Temperature 98.6 F Pulse Rate 110 H Respiratory Rate 17 Blood Pressure 143/91 H Pulse Oximetry 96 Medical Decision Making MDM Narrative Medical decision making narrative: Patient is alert oriented x3. Per his report he feels much better than what he did earlier in the week. Patient is on cefdinir which should treat strep pneumo. He is not hypoxic. He is tachycardic. Not febrile. I discussed with him the findings of the cultures. We discussed being admitted to the hospital because of the cultures. We discussed repeating labs and x-rays versus being discharged home. Initially patient stated that he was okay with having blood drawn. He mentioned that he would like to be tested for HIV and hepatitis C. I informed him that we certainly could test for these but then he very quickly changed his mind. He states that he did not want any blood drawn. He states that he did not actually check into the emergency department but only came because he was told that he needed to come back. He did not want to be admitted to the hospital. Patient walked out of the emergency department without any discharge instructions. He did appear very well and I informed him that he needs to continue to take the antibiotics which she expressed understanding of this and to return if anything worsens which he also expressed understanding. Patient was alert oriented x3. Not clinically intoxicated. In My opinion had capacity to make decisions. Discharge Plan Departure Patient Disposition: Left Against Medical Advice Clinical Impression: Pneumonia, Bacteremia Prescriptions: No Action amoxicillin-pot clavulanate [Augmentin] 875-125 mg tablet 1 tab PO BID Qty: 20 0RF penicillin V potassium 500 mg tablet 500 mg PO QID Qty: 40 0RF cefdinir 300 mg capsule 300 mg PO BID Qty: 14 0RF Stand Alone Forms: Against Medical Advice
== END 2021-11-04 22:18 | disposition left against medical advice (07) ==
PROVIDERS: Emergency Provider Emergency Medicine
DX: J15.4 Pneumonia due to other streptococci (principal); F17.290 Nicotine dependence, other tobacco product, uncomplicated; Z53.29 Procedure and treatment not carried out because of patient's decision for other reasons
CPT/HCPCS: 99281

== ENCOUNTER 2022-08-22 15:00 | Emergency (ER) | payer OTHER, MEDICAID, SELFPAY ==
[2022-08-22 15:19] VITALS: BP 160/103; PULSE 100; RESP 19; TEMP 36.6; O2SAT 100; BMI 24.6
--- NOTE | 2022-08-22 15:21 | DI.RAD.S_ITS ---
PROCEDURE: XR CHEST 2V INDICATIONS: pain with inspiration in left lung TECHNIQUE: 2 views of the chest were acquired. COMPARISON: None. FINDINGS: Surgical changes and devices: None. Lungs and pleura: Lungs are clear. No pleural effusions or pneumothorax. Mediastinum: Mediastinal contours are normal. Heart size is normal. Bones and chest wall: No suspicious bony abnormalities. Soft tissues appear unremarkable. IMPRESSION: Normal chest radiographs. Dictated by: Jacques Barr M.D. on 08/22/2022 at 15:48 Approved by: Jacques Barr M.D. on 08/22/2022 at 15:48
[2022-08-22 16:45] LABS: Prothrombin Time 11.9 SECONDS (10.1-12.7)
[2022-08-22 16:48] LABS: Add Manual Diff / Slide Review NO; Basophils Absolute Auto 100 /uL (0-100); Basophils Percent Auto 0.8 % (0-2); Eosinophils Absolute Auto 100 /uL (0-450); Eosinophils Percent Auto 1.4 % (2-4); Hemoglobin 13.7 g/dL (13.5-17.5); Lymphocytes Absolute Auto 1700 /uL (1100-4500); Lymphocytes Percent Auto 24.8 % (25-40); Mean Corpuscular HGB Conc 33.4 % (30-36); Mean Corpuscular Hemoglobin 27.9 PG (26-34); Mean Corpuscular Volume 83.4 fL (80-100); Monocytes Absolute Auto 700 /uL (0-900); Monocytes Percent Auto 10.7 % (3-14); Neutrophils Absolute Auto 4300 /uL (1500-7000); Neutrophils Percent Auto 62.3 % (50-75); Platelet Count 300 X10^3/uL (150-400); Red Blood Cell Count 4.92 X10^6/uL (4.5-5.9); Red Cell Distribution Width 15.2 % (11.6-14.8); White Blood Cell Count 6.9 X10^3/uL (4.5-11.0)
[2022-08-22 16:51] LABS: Alanine Aminotransferase 24 IU/L (<50); Albumin 4.2 g/dL (3.5-5.0); Albumin Globulin Ratio 1.6 (1.0-2.8); Alkaline Phosphatase 69 U/L (38-126); Aspartate Aminotransferase 27 IU/L (17-59); BUN Creatinine Ratio 19.8 (6-22); Bilirubin Total 0.3 mg/dL (0.2-1.3); Blood Urea Nitrogen 16 mg/dL (9-20); Calcium 8.6 mg/dL (8.4-10.2); Carbon Dioxide 28 mmol/L (22-32); Chloride 103 mmol/L (98-107); Creatine Kinase 72 U/L (55-170); Estimated Glomerular Filt Rate > 60 mL/min (>60); Globulin 2.7 g/dL (1.7-4.1); Glucose 114 mg/dL (70-100); HEMOLYSIS < 15 (0-50); Sodium 138 mmol/L (137-145); Total Protein 6.9 g/dL (6.3-8.2)
[2022-08-22 16:52] VITALS: PULSE 95; RESP 17; O2SAT 99
[2022-08-22 16:54] LABS: D Dimer 230 ng/ml (<500)
[2022-08-22 17:03] LABS: Troponin I < 0.012 ng/mL (0.01-0.034)
[2022-08-22 17:08] VITALS: BP 128/71
--- NOTE | 2022-08-22 18:03 | PC.NURSE ---
Patient states I've been having a lot of intercourse lately so maybe it's form that.
== END 2022-08-22 17:00 | disposition left against medical advice (07) ==
PROVIDERS: Emergency Provider Emergency Medicine
DX: R06.02 Shortness of breath (principal); R07.81 Pleurodynia
CPT/HCPCS: 36415; 71046; 80053; 82550; 84484; 85025; 85379; 85610; 99283

== ENCOUNTER 2022-10-07 02:45 | Emergency (ER) | payer OTHER, MEDICAID, SELFPAY ==
--- NOTE | 2022-10-07 02:52 | ED.GENADULT ---
[facility] - General Adult General Chief complaint: Abdominal Pain Stated complaint: lower lt. quad pain/kidney pain Time Seen by Provider: 10/07/22 02:52 History of Present Illness HPI narrative: 37-year-old gentleman presents with 3 months of intermittent left flank pain that has gotten progressively worse since 1:30 a.m. today. He was seen at [facility] and told that he had kidney stones and he needed find a primary care doctor but was not given any additional information or recommendations. He does not describe any recent fevers, cough, chills, dysuria. No chest pain, palpitations, dyspnea. He is not complaining of any penile discharge and testicular pain. He has been otherwise stooling and voiding Normally. Related Data Allergies Allergy/AdvReac Type Severity Reaction Status Date / Time No Known Drug Allergies Allergy Verified 08/22/22 15:13 Review of Systems Review of Systems Narrative: Pertinent positive and negative findings as per HPI Patient History Medical History (Updated 10/07/22 @ 04:24 by Yue Wooten MD) Kidney stones Methamphetamine abuse Pneumonia Social History Smoking Status: Current every day smoker Smoking Status: Current every day smoker tobacco type: vaping alcohol intake frequency: 0-2 drinks per day Alcohol type: other Substance Use Type: marijuana and methamphetamine Exam Initial Vital Signs Initial Vital Signs: General: Healthy appearing, in no acute distress. Able to give a complete and coherent history. Well-nourished well-developed HEENT: Moist mucous membranes, normal sclera with reactive pupils, Respiratory: Lungs are clear to auscultation, no wheezing no rales no rhonchi. Full and symmetrical air movement Cardiac: Regular rate and rhythm no murmurs no bruits Abdomen: Soft, nontender, good bowel tones, left flank pain Skin: Warm and dry, no rashes Neurologic: Grossly neurologically intact with no obvious asymmetries or abnormalities Extremities: No trauma, well perfused Psych: Cooperative, appropriate insight and affect Medical Decision Making [facility] Narrative Medical decision making narrative: CC: Acute on chronic left flank pain this is a new exacerbation of a 3-month-old problem with worsening symptoms and uncertain prognosis Complicating co-morbidities: history of kidney stones Data collected from: patient Medical records reviewed: emergency visit notes from October in July of 2021 are reviewed. Differential considered: Kidney stones, hydronephrosis, pyelonephritis, perinephric abscess, diverticulitis, left lower lobe pneumonia, constipation Exam documented above, pertinent findings include: unremarkable exam with moderate left flank pain to palpation Lab Test results independently reviewed as above. Pertinent findings: CBC is unremarkable chemistries are reassuring with normal renal function Imaging studies independently reviewed: CT KUB shows no acute findings. Specifically no kidney stones or hydronephrosis, no diverticulitis, no lower lobe pneumonia, no appendicitis, renal cyst, pyelonephritis and spleen and pancreas are both normal Discussion: after fluids and Toradol patient is feeling significantly improved. At this point there is no evidence of pyelonephritis, kidney stones or other significant intra-abdominal or lower pulmonary pathology to explain his left flank pain. I suspect that it is mostly musculoskeletal. There is no skin change to suggest zoster and with the intermittent episodes over the last 3 months again musculoskeletal pain is most likely. Recommended ibuprofen and Tylenol, reviewed all labs and CT findings. Questions are answered and he is safe for discharge home Discharge Plan Departure Patient Disposition: Home Clinical Impression: Musculoskeletal pain Instructions: DI for Low Back Pain, DI for Thoracic Back Pain Activity Restrictions/Additional Instructions: thank you for coming in today fortunately, did not find any significant pathology. Specifically there are no kidney stones, kidney infection, diverticulitis, abnormalities inside your abdomen, pneumonia in the left portion of your lung. I suspect that the pain that you are experiencing is musculoskeletal. Using 400 mg of ibuprofen (2 [id number] pills) and 1 Tylenol every 6 hours can be very helpful in controlling pain. At this point I do think discharge home is safe. If you find that you are getting worse or develop any new symptoms, please feel free to return to the emergency department for further evaluation. Referrals: Angelycellpushpa,MD Lisy [Primary Care Provider] - Stand Alone Forms: Patient Portal/API
[2022-10-07 03:08] VITALS: BP 142/97; PULSE 81; RESP 19; TEMP 36.6; O2SAT 99; BMI 24.6
--- NOTE | 2022-10-07 03:18 | DI.CT.S_ITS ---
PROCEDURE: CT KIDNEY URETER BLADDER (KUB) INDICATIONS: left flank pain TECHNIQUE: Axial sections were acquired from the lung bases to the pubic symphysis. Coronal and sagittal reformats were performed. For radiation dose reduction, the following was used: automated exposure control, adjustment of mA and/or kV according to patient size. COMPARISON: None. FINDINGS: Image quality: Excellent. Lung bases: Unremarkable. Heart: No significant findings. URINARY: Right Kidney: No stones or hydronephrosis. Right Ureter: No hydroureter. Left Kidney: No stones or hydronephrosis. Left Ureter: No hydroureter. Bladder: Normal wall thickness. No stones. ABDOMEN: Liver: Unremarkable. Gallbladder: Unremarkable. Biliary ducts: Unremarkable. Pancreas: Unremarkable. Spleen: Unremarkable. Adrenal Glands: Unremarkable. Stomach and Bowel: Stomach, small bowel loops, and colon are unremarkable. Normal appendix Peritoneum: No abnormal intraperitoneal fluid. No free air. Ventral Wall: Very small fat containing umbilical hernia without acute inflammation. Abdominal Nodes: No enlarged retroperitoneal or mesenteric lymph nodes. Vessels: Aorta and inferior vena cava are normal in size. PELVIS: Pelvic Organs: Unremarkable. Pelvic Nodes: Unremarkable. Miscellaneous: No inguinal hernias are seen. Bones: Unremarkable. IMPRESSION: CT abdomen and pelvis without acute abnormalities. No evidence for urolithiasis or obstructive uropathy. Normal appendix. No significant discrepancy with the shift foreman radiology preliminary report. Dictated by: Cleve Batres M.D. on 10/07/2022 at 7:21 Approved by: Cleve Batres M.D. on 10/07/2022 at 7:23
[2022-10-07] MEDS: SODIUM CHLORIDE 0.9% 1,000 ML 1000 ML IV (03:39)
[2022-10-07] MEDS: ONDANSETRON 4 MG/2 ML INJ IV (03:39)
[2022-10-07] MEDS: KETOROLAC 30 MG/ML VIAL 15 MG IV (03:39)
[2022-10-07 04:03] LABS: Add Manual Diff / Slide Review NO; Basophils Absolute Auto 0 /uL (0-100); Basophils Percent Auto 0.3 % (0-2); Eosinophils Absolute Auto 100 /uL (0-450); Eosinophils Percent Auto 1.1 % (2-4); Hematocrit 40.8 % (41-53); Hemoglobin 13.4 g/dL (13.5-17.5); Lymphocytes Absolute Auto 2400 /uL (1100-4500); Lymphocytes Percent Auto 22.1 % (25-40); Mean Corpuscular HGB Conc 32.9 % (30-36); Mean Corpuscular Hemoglobin 27.1 PG (26-34); Mean Corpuscular Volume 82.3 fL (80-100); Monocytes Absolute Auto 1000 /uL (0-900); Monocytes Percent Auto 9.4 % (3-14); Neutrophils Absolute Auto 7100 /uL (1500-7000); Neutrophils Percent Auto 67.1 % (50-75); Platelet Count 343 X10^3/uL (150-400); Red Blood Cell Count 4.95 X10^6/uL (4.5-5.9); Red Cell Distribution Width 14.9 % (11.6-14.8); White Blood Cell Count 10.6 X10^3/uL (4.5-11.0)
[2022-10-07 04:11] LABS: Alanine Aminotransferase 18 IU/L (<50); Albumin 3.8 g/dL (3.5-5.0); Albumin Globulin Ratio 1.4 (1.0-2.8); Alkaline Phosphatase 67 U/L (38-126); Aspartate Aminotransferase 24 IU/L (17-59); BUN Creatinine Ratio 22.6 (6-22); Bilirubin Total 0.2 mg/dL (0.2-1.3); Blood Urea Nitrogen 19 mg/dL (9-20); Calcium 8.7 mg/dL (8.4-10.2); Carbon Dioxide 27 mmol/L (22-32); Chloride 104 mmol/L (98-107); Estimated Glomerular Filt Rate > 60 mL/min (>60); Globulin 2.8 g/dL (1.7-4.1); Glucose 102 mg/dL (70-100); HEMOLYSIS < 15 (0-50); Sodium 139 mmol/L (137-145); Total Protein 6.6 g/dL (6.3-8.2)
[2022-10-07 04:29] VITALS: BP 134/69; PULSE 71; RESP 18; O2SAT 95
== END 2022-10-07 04:31 | disposition home or self-care (01) ==
PROVIDERS: Emergency Provider Emergency Medicine
DX: M54.6 Pain in thoracic spine (principal); M54.50 Low back pain, unspecified; Z87.442 Personal history of urinary calculi
CPT/HCPCS: 36415; 74176; 80053; 85025; 96374; 96375; 99284; J1885; J2405

== ENCOUNTER 2022-12-05 22:29 | Emergency (ER) | payer OTHER, MEDICAID, SELFPAY ==
[2022-12-05 23:01] VITALS: BP 133/66; PULSE 93; RESP 20; TEMP 36.8; O2SAT 98; BMI 24.1
--- NOTE | 2022-12-06 01:20 | ED_ITS ---
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 He fell down and having increasing left knee pain. Was seen earlier today at [facility] where an x-ray was done but he left prior to being seen by a physician. Comes in complaining of increasing pain and tenderness and still feeling that his knee is going to give out and unable to bear weight on the left side. Has no other significant complaints at this time. Related Data Allergies Allergy/AdvReac Type Severity Reaction Status Date / Time No Known Drug Allergies Allergy Verified 08/22/22 15:13 Review of Systems Review of Systems Narrative: Pertinent positive and negative findings as per HPI Patient History Medical History (Updated 12/06/22 @ 01:53 by Yue Wooten MD) Kidney stones Methamphetamine abuse Pneumonia Social History Smoking Status: Current every day smoker Smoking Status: Current every day smoker tobacco type: vaping alcohol intake frequency: 0-2 drinks per day Alcohol type: other Substance Use Type: marijuana and methamphetamine Exam Initial Vital Signs Initial Vital Signs: Vital Signs Temperature 98.3 F 12/05/22 23:01 Pulse Rate 93 H 12/05/22 23:01 Respiratory Rate 20 12/05/22 23:01 Blood Pressure 133/66 12/05/22 23:01 Pulse Oximetry 98 12/05/22 23:01 Oxygen Delivery Method Room Air 12/05/22 23:01 General: Slightly disheveled, injected sclera bilaterally appears to be in pain but cooperative with exam and history Respiratory: Able to speak in full sentences, no obvious respiratory distress Skin: No obvious rashes, warm and dry Neurologic: Grossly intact no obvious asymmetries or abnormalities Psych: appropriate insight and affect, cooperative Extremity: Left knee with effusion. No redness or warmth. He has tenderness with extending or flexion. He is able to get into a splint but it is tender. He is normal pulses distally no neurologic abnormalities distally. He does not have any injuries to his hip. Knee is too tender to do a more thorough exam to fully evaluate ligamentous injury. Course Vital Signs Vital signs: Vital Signs - 8 hr 12/05/22 23:01 Temperature 98.3 F Pulse Rate 93 H Respiratory Rate 20 Blood Pressure 133/66 Pulse Oximetry 98 Oxygen Delivery Method Room Air MDM - Extremity Injury (Lower) MDM Narrative Medical decision making narrative: CC: Acute left knee pain, uncertain prognosis Data collected from: patient, Social determinants of health that may influence the patients condition: History of methamphetamine use Medical records reviewed: Records from [facility] earlier today are reviewed. Differential considered: Ligamentous injury, bony injury, acute knee strain, quadricep tear Exam documented above, pertinent findings include: Tender left knee with effusion without erythema. No suggestion of infection. Lab Test not indicated today Imaging studies independently reviewed: Knee x-ray at [facility] earlier today shows no acute bony injury Consultations: Treatments: He is placed in a long-leg knee immobilizer by nursing staff and is neurovascularly intact after placement. Still complaining of pain but it does feel more stable. He is given crutches instructions on use. Ibuprofen and Tylenol administered. Re-evaluations: He is doing well on the crutches, is able to toe touch with the left leg with the immobilizer in place. Discussion: 37-year-old gentleman fell while at work with left knee injury and suspected ligamentous damage. Will need follow-up with orthopedic surgery and will likely benefit from advanced imaging as an outpatient. Reviewed importance of using the knee immobilizer to avoid the knee giving out on him again. L and I paperwork is filled out he is safe for discharge home Discharge Plan Departure Patient Disposition: Home Clinical Impression: Injury of knee, left Instructions: DI for Knee Pain Activity Restrictions/Additional Instructions: Thank you for coming in tonight X-rays from earlier today do not show any bony injury however with the effusion, the decreased range of motion in the overall tenderness I am concerned that you have significant ligamentous injury. Please use the long leg immobilizer to make sure that the knee does not give out on you again and cause another fall. Using 400 mg of ibuprofen (2 [id number] pills) and 1 Tylenol every 6 hours can be very helpful in controlling pain. You will need follow-up with orthopedic surgery. Please call [facility] at [phone] to schedule an ER follow-up visit for your acute knee injury. You may end up needing advanced imaging such as MRI. I am going to write a note excusing you from work until you have been further evaluated and cleared to return to work by the orthopedic surgeon. If you find that you are getting worse or develop any new symptoms, please feel free to return to the emergency department for further evaluation. Referrals: Miscellaneous,Doctor, [Primary Care Provider] - Stand Alone Forms: Patient Portal/API, Work Release Note
[2022-12-06 01:39] VITALS: BP 116/76; PULSE 81; RESP 14; O2SAT 99
[2022-12-06] MEDS: IBUPROFEN 400 MG TABLET PO (01:41)
[2022-12-06] MEDS: ACETAMINOPHEN 325 MG TABLET PO (01:42)
== END 2022-12-06 02:00 | disposition home or self-care (01) ==
PROVIDERS: Emergency Provider Emergency Medicine
DX: S89.92XA Unspecified injury of left lower leg, initial encounter (principal); W18.30XA Fall on same level, unspecified, initial encounter; Y99.0 Civilian activity done for income or pay
CPT/HCPCS: 99282; 99283

== ENCOUNTER 2023-11-24 21:28 | Emergency (ER) | payer SELFPAY ==
[2023-11-24] VITALS (8 sets, daily range): BP systolic 118–146; BP diastolic 76–89; PULSE 94–111; RESP 18–39; TEMP 36.7; O2SAT 97–100; BMI 25.3
--- NOTE | 2023-11-24 21:50 | DI.RAD.S_ITS ---
PROCEDURE: XR CHEST 1V INDICATIONS: chest pain TECHNIQUE: One view of the chest was acquired. COMPARISON: [facility], CR, XR CHEST 2V, 08/22/2022, 15:34. FINDINGS: Surgical changes and devices: None. Lungs and pleura: Lungs are clear. No pleural effusions or pneumothorax. Mediastinum: Mediastinal contours appear normal. Heart size is normal. Bones and chest wall: No suspicious bony lesions. Overlying soft tissues appear unremarkable. IMPRESSION: No acute cardiopulmonary abnormality is seen. Dictated by: Marybeth Simon M.D. on 11/24/2023 at 22:22 Approved by: Marybeth Simon M.D. on 11/24/2023 at 22:22
--- NOTE | 2023-11-24 21:52 | ED.CHESTPAIN ---
HPI - Chest Pain General Chief Complaint: Chest Pain Stated Complaint: lt flank pain Time Seen by Provider: 11/24/23 21:49 Source: patient Mode of arrival: Ambulatory Limitations: no limitations Limitations: no limitations History of Present Illness HPI narrative: 38-year-old male history of tobacco use and vapes marijuana, no other reported medical issues. States he has not had any fevers but he has had a cough with some green productive sputum and left-sided chest pain which she describes as pleuritic. [place] little bit short of breath. He states no nasal congestion. He feels mildly short of breath. Denies any nausea or vomiting, no other diarrhea or constipation no urinary symptoms. Denies any falls or trauma. No injuries. Has not had similar symptoms in the past. States he is otherwise healthy does not take any daily medications denies any prior surgeries. No known drug allergies. Does smoke tobacco daily, vapes marijuana denies any other recreational or IV drugs. Denies any active alcohol use. Related Data Previous Rx's Medication Instructions Recorded amoxicillin 875 mg-potassium 1 tab PO BID #20 tabs 11/25/23 clavulanate 125 mg tablet Allergies Allergy/AdvReac Type Severity Reaction Status Date / Time No Known Drug Allergies Allergy Verified 11/24/23 21:37 Review of Systems Review of Systems ROS Unobtainable: All systems reviewed & are unremarkable except as noted in HPI and below Patient History Medical History Kidney stones Methamphetamine abuse Pneumonia Social History Smoking Status: Current every day smoker Smoking Status: Current every day smoker tobacco type: vaping alcohol intake frequency: 0-2 drinks per day Alcohol type: other Substance Use Type: marijuana and methamphetamine Exam Narrative Exam Narrative: GENERAL: Alert and oriented x three, mild distress. HEENT: Head normocephalic, atraumatic, EOMI, pupils reactive, face symmetric, moist mucous membranes NECK: Supple, full range of motion CARDIOVASCULAR: Tachycardic but regular rate and rhythm without murmurs, rubs or gallops. No JVD. No edema bilateral lower extremities. RESPIRATORY: Breath sounds equal bilaterally, no wheezes rales or rhonchi. No tachypnea accessory muscle use. ABDOMEN: Soft, nontender. Normoactive bowel sounds all 4 quadrants. No guarding or rebound, rigidity, no mass : No CVA tenderness EXTREMITIES: Normal range of motion, no clubbing or edema. Neurovascularly intact NEUROLOGICAL: Cranial nerves II through XII grossly intact. Moving all extremities SKIN: Warm, dry, no petechiae, no rashes or lesions. Initial Vital Signs Initial Vital Signs: Vital Signs Temperature 98.0 F 11/24/23 21:34 Pulse Rate 110 H 11/24/23 21:34 Respiratory Rate 18 11/24/23 21:34 Blood Pressure 146/85 H 11/24/23 21:34 Pulse Oximetry 100 11/24/23 21:34 Oxygen Delivery Method Room Air 11/24/23 21:34 Course Orders Ordered: ED Orders 11/24/23 21:50 XR chest 1V Stat EKG-12 Lead Stat 11/24/23 21:53 Complete Blood Count AUTO DIFF Stat Comprehensive Metabolic Panel Stat D Dimer Stat Lipase Stat Magnesium Stat PTT Partial Thromboplastin Aravind Stat Prothrombin Time INR Stat Troponin & CK Cardiac Panel Stat 11/24/23 23:50 Trop I [Troponin I] Stat Vital Signs Vital signs: Vital Signs - 8 hr 11/24/23 21:34 11/24/23 21:40 11/24/23 21:41 Temperature 98.0 F Pulse Rate 110 H 111 H Respiratory Rate 18 26 H Blood Pressure 146/85 H 126/87 Pulse Oximetry 100 Oxygen Delivery Method Room Air 11/24/23 21:41 11/24/23 22:00 11/24/23 22:00 Temperature Pulse Rate 111 H 106 H Respiratory Rate 23 26 H Blood Pressure 130/85 Pulse Oximetry 100 99 Oxygen Delivery Method 11/24/23 22:30 11/24/23 22:30 11/24/23 22:59 Temperature Pulse Rate 97 H 95 H Respiratory Rate 26 H 39 H Blood Pressure 134/76 Pulse Oximetry 99 99 Oxygen Delivery Method 11/24/23 23:00 11/24/23 23:00 11/24/23 23:30 Temperature Pulse Rate 110 H 94 H Respiratory Rate 33 H 19 Blood Pressure 118/89 Pulse Oximetry 97 97 Oxygen Delivery Method 11/24/23 23:30 11/25/23 00:00 11/25/23 00:00 Temperature Pulse Rate 89 Respiratory Rate Blood Pressure 127/84 128/83 Pulse Oximetry 98 Oxygen Delivery Method 11/25/23 00:30 11/25/23 00:30 Temperature Pulse Rate 90 Respiratory Rate 18 Blood Pressure 126/58 L Pulse Oximetry 95 Oxygen Delivery Method MDM - Chest Pain Lab Data 11/24/23 21:53 11/24/23 21:53 Labs: Lab Results 11/24/23 11/24/23 Range/Units 21:53 23:50 WBC 9.2 (4.5-11.0) X10^3/uL RBC 4.77 (4.5-5.9) X10^6/uL Hgb 12.5 L (13.5-17.5) g/dL Hct 38.6 L (41-53) % MCV 80.8 (80-100) fL MCH 26.2 (26-34) PG MCHC 32.4 (30-36) % RDW 16.4 H (11.6-14.8) % Plt Count 372 (150-400) X10^3/uL Neut % (Auto) 70.9 (50-75) % Lymph % (Auto) 18.5 L (25-40) % [place] % (Auto) 9.3 (3-14) % Eos % (Auto) 0.6 L (2-4) % Baso % (Auto) 0.7 (0-2) % Neut # (Auto) 6600 (8746-0670) /uL Lymph # (Auto) 1700 (6347-4615) /uL [place] # (Auto) 900 (0-900) /uL Eos # (Auto) 100 (0-450) /uL Baso # (Auto) 100 (0-100) /uL PT 12.1 (9.4-12.5) SECONDS INR 1.1 (0.9-1.3) APTT 36 (25.1-36.5) SECONDS D-Dimer 273 (<500) ng/ml Sodium 138 (137-145) mmol/L Potassium 3.9 (3.4-5.1) mmol/L Chloride 105 (98-107) mmol/L Carbon Dioxide 29 (22-32) mmol/L BUN 12 (9-20) mg/dL Creatinine 0.80 (0.66-1.25) mg/dL Estimated GFR > 60 (>60) mL/min BUN/Creatinine Ratio 15.0 (6-22) Glucose 86 (70-100) mg/dL Calcium 8.9 (8.4-10.2) mg/dL Magnesium 2.1 (1.6-2.3) mg/dL Total Bilirubin 0.5 (0.2-1.3) mg/dL AST 36 (17-59) IU/L ALT 17 (<50) IU/L Alkaline Phosphatase 64 (38-126) U/L Total Creatine Kinase 365 H (55-170) U/L Troponin I < 0.012 < 0.012 (0.01-0.034) ng/mL Total Protein 6.7 (6.3-8.2) g/dL Albumin 4.1 (3.5-5.0) g/dL Globulin 2.6 (1.7-4.1) g/dL Albumin/Globulin Ratio 1.6 (1.0-2.8) Lipase 24 (23-300) U/L Imaging Data Chest x-ray: Radiologist's Impression: Close Chest X-Ray (Signed) Marybeth Simon - 11/24/23 Abdomen/Pelvis CT (Signed) Cleve Batres - 10/07/22 Chest X-Ray (Signed) Jacques Barr - 08/22/22 Chest X-Ray (Signed) Rohan Mills - 11/01/21 [place] [facility] (Signed) Ry Mitchell - 08/28/21 [facility] [address] XRay Report Signed Patient: Esdras Rainey MR#: [id number] : 1985 Acct:[id number] Age/Sex: 38 / M Date of Service: 11/24/23 Loc: ED Accession Number: [id number] Procedure: XR chest 1V Ordering Provider: Mel Ibarra D.O. PROCEDURE: XR CHEST 1V INDICATIONS: chest pain TECHNIQUE: One view of the chest was acquired. COMPARISON: [facility], , XR CHEST 2V, 08/22/2022, 15:34. FINDINGS: Surgical changes and devices: None. Lungs and pleura: Lungs are clear. No pleural effusions or pneumothorax. Mediastinum: Mediastinal contours appear normal. Heart size is normal. Bones and chest wall: No suspicious bony lesions. Overlying soft tissues appear unremarkable. IMPRESSION: No acute cardiopulmonary abnormality is seen. Dictated by: Marybeth Simon M.D. on 11/24/2023 at 22:22 Approved by: Marybeth Simon M.D. on 11/24/2023 at 22:22 ECG Data Attestation: I personally reviewed and interpreted this ECG as follows: Prior ECG tracings: available for review Interpretation: Sinus tachycardia rate of 105 NM 158 QRS of 96 QTC 438, no acute ST elevation depression noted. Patient has prior from 11/01/2021 which appears similar in his also sinus tachycardia. EKG 2. Sinus rhythm rate 83 NM 174 QRS of 106 QTC 4-5. No acute ST changes appreciated. MDM Narrative Medical decision making narrative: 38-year-old with complaint of left-sided chest pain does describe productive green sputum. He is slightly tachycardic upon arrival. He has not hypoxic. He does have breath sounds equal bilaterally with no crackles wheezes or rales. Patient does not endorse some infectious symptoms with cough, green productive sputum that has been going on for 7 +days Patient is tachycardic but not hypotensive, not hypoxic. White count is 9.2 hemoglobin is 12.5 prior was 13.4 in October of 2022, platelets are 372. INR is 1.1 PTT is 36 D-dimer is negative at 273. Chemistry shows sodium 138 potassium of 3.9 chloride of 105 CO2 20, BUN 12 creatinine 0.8 0, glucose 86 LFTs are negative CK is 365. Initial troponins less than 0.012 and repeat troponin is also less than 0.012. Lipase is normal at 24. Chest x-ray shows no acute change. Initial EKG showed sinus tachycardia patient's heart rate improved here in the department since the s without any additional intervention. Discussed with patient he has had some green productive sputum cough for a week he does not have any crackles but suspect clinical pneumonia, was given a prescription for oral antibiotic to start if he has persistent symptoms over the next 1-2 days has a little been 10 days total of symptoms. Discussed return precautions all questions answered. Discharge Plan Departure Patient Disposition: Home Clinical Impression: Pneumonia Activity Restrictions/Additional Instructions: Your workup today shows a clear chest x-ray but your symptoms seem consistent with a possible bacterial pneumonia. Included is a prescription to start if your symptoms are not improving over the next 2 days. This prescription is printed. Please return for fevers increasing pain, lightheadedness or passing out, persistent vomiting, new shortness of breath, swelling of extremities or other new or concerning changes. Prescriptions: New amoxicillin-pot clavulanate 875-125 mg tablet 1 tab PO BID Qty: 20 0RF Referrals: Miscellaneous,Doctor, MD [Primary Care Provider] - Stand Alone Forms: Patient Portal/API
[2023-11-24 22:07] LABS: Add Manual Diff / Slide Review NO; Basophils Absolute Auto 100 /uL (0-100); Basophils Percent Auto 0.7 % (0-2); Eosinophils Absolute Auto 100 /uL (0-450); Eosinophils Percent Auto 0.6 % (2-4); Hematocrit 38.6 % (41-53); Hemoglobin 12.5 g/dL (13.5-17.5); Lymphocytes Absolute Auto 1700 /uL (1100-4500); Lymphocytes Percent Auto 18.5 % (25-40); Mean Corpuscular HGB Conc 32.4 % (30-36); Mean Corpuscular Hemoglobin 26.2 PG (26-34); Mean Corpuscular Volume 80.8 fL (80-100); Monocytes Absolute Auto 900 /uL (0-900); Monocytes Percent Auto 9.3 % (3-14); Neutrophils Absolute Auto 6600 /uL (1500-7000); Neutrophils Percent Auto 70.9 % (50-75); Platelet Count 372 X10^3/uL (150-400); Red Blood Cell Count 4.77 X10^6/uL (4.5-5.9); Red Cell Distribution Width 16.4 % (11.6-14.8); White Blood Cell Count 9.2 X10^3/uL (4.5-11.0)
[2023-11-24 22:15] LABS: INR 1.1 (0.9-1.3); Prothrombin Time 12.1 SECONDS (9.4-12.5)
[2023-11-24 22:18] LABS: PTT Partial Thromboplastin Tim 36 SECONDS (25.1-36.5)
[2023-11-24 22:20] LABS: Alanine Aminotransferase 17 IU/L (<50); Albumin 4.1 g/dL (3.5-5.0); Albumin Globulin Ratio 1.6 (1.0-2.8); Alkaline Phosphatase 64 U/L (38-126); Aspartate Aminotransferase 36 IU/L (17-59); Bilirubin Total 0.5 mg/dL (0.2-1.3); Blood Urea Nitrogen 12 mg/dL (9-20); Calcium 8.9 mg/dL (8.4-10.2); Carbon Dioxide 29 mmol/L (22-32); Chloride 105 mmol/L (98-107); Creatine Kinase 365 U/L (55-170); Estimated Glomerular Filt Rate > 60 mL/min (>60); Globulin 2.6 g/dL (1.7-4.1); Glucose 86 mg/dL (70-100); HEMOLYSIS < 15 (0-50); Lipase 24 U/L (23-300); Magnesium 2.1 mg/dL (1.6-2.3); Potassium 3.9 mmol/L (3.4-5.1); Sodium 138 mmol/L (137-145); Total Protein 6.7 g/dL (6.3-8.2)
[2023-11-24 22:27] LABS: D Dimer 273 ng/ml (<500)
[2023-11-24 22:31] LABS: Troponin I < 0.012 ng/mL (0.01-0.034)
[2023-11-25] VITALS: BP 128/83; PULSE 89; O2SAT 98
[2023-11-25 00:15] LABS: Troponin I < 0.012 ng/mL (0.01-0.034)
[2023-11-25 00:30] VITALS: BP 126/58; PULSE 90; RESP 18; O2SAT 95
== END 2023-11-25 01:05 | disposition home or self-care (01) ==
PROVIDERS: Emergency Provider Emergency Medicine
DX: J18.9 Pneumonia, unspecified organism (principal); R07.9 Chest pain, unspecified; F17.200 Nicotine dependence, unspecified, uncomplicated
CPT/HCPCS: 36415; 71045; 80053; 82550; 83690; 83735; 84484; 85025; 85379; 85610; 85730; 93005; 99283; 99284